=== PATIENT | male | born 1985 | race Caucasian/White ===

== ENCOUNTER 2017-05-25 08:00 | Outpatient (CLI) | payer MEDICAID ==
[2017-05-25 19:39] LABS: H. PYLORIS ANTIGEN STL NEGATIVE (Negative)
== END 2017-05-25 08:01 | disposition home or self-care (01) ==
LOC: LAB.WCP 08:00
PROVIDERS: ATTEND Family Medicine
DX: K21.9 Gastro-esophageal reflux disease without esophagitis (principal)
CPT/HCPCS: 87338

== ENCOUNTER 2017-06-26 13:02 | Outpatient (CLI) | payer MEDICAID | END 2017-06-26 13:03 | disposition home or self-care (01) | LOC: SC 13:02 | PROVIDERS: ATTEND Internal Medicine Pulmonary Disease | DX: G47.00 Insomnia, unspecified (principal); G47.9 Sleep disorder, unspecified | CPT/HCPCS: 99203; 99212 ==

== ENCOUNTER 2017-11-12 21:33 | Emergency (ER) | payer MEDICAID ==
--- NOTE | 2017-11-12 21:45 | ED Physician Documentation ---
PD HPI UPPER EXT INJURY - Stated complaint Stated Complaint: RT HAND LACERATION - Chief complaint Chief Complaint: Laceration - History obtained from History obtained from: Patient - History of Present Illness Location: Right, Finger (flexion crease middle finger right hand from sheet metal on bottom of fridge he was lifting.) Type of injury: Laceration Timing - onset: Today Timing - details: Abrupt onset Worsened by: Moving, Palpating Associated symptoms: No: Weakness, Numbness, Tingling Similar symptoms before: Has not had sx before Recently seen: Not recently seen Review of Systems Skin: reports: Laceration (s) Neurologic: denies: Focal weakness, Numbness PD PAST MEDICAL HISTORY - Past Medical History Cardiovascular: None Respiratory: None Endocrine/Autoimmune: None GI: GERD : Other HEENT: Chronic hearing loss Psych: Depression, Anxiety, Panic attacks, Post traumatic stress disorder Musculoskeletal: None Derm: None - Past Surgical History Ortho: Arthroscopic surgery HEENT: Rhinoplasty - Present Medications Home Medications: Ambulatory Orders Medication Instructions Recorded Confirmed Acetaminophen [Tylenol Extra 1,000 mg PO BID 07/07/15 07/07/15 Strength] Acyclovir [Zovirax] 200 mg PO BID 07/07/15 07/07/15 Fexofenadine HCl [Tyra Allergy] 180 mg PO DAILY 07/07/15 07/07/15 Propranolol [Inderal] 20 mg PO BID 07/07/15 07/07/15 raNITIdine [Zantac] 150 mg PO DAILY 07/07/15 07/07/15 - Allergies Allergies/Adverse Reactions: Allergies Allergy/AdvReac Type Severity Reaction Status Date / Time No Known Drug Allergies Allergy Verified 11/12/17 21:45 PD ED PE NORMAL - Vitals Vital signs reviewed: Yes - General General: Alert and oriented X 3, No acute distress, Well developed/nourished - Derm Derm: Normal color, Warm and dry - Extremities Extremities: Other (right middle finger PIP flexion crease with 1 cm laceration to fatty tissue. No FB nor tendon involvement. Wound opens with finger straightening.) Results - Vitals Vitals: Oxygen O2 Source Room air Procedures - Laceration (location) right middle finger Length in cm: 1 Wound type: Linear, Into subcut fat, Clean. No: Contaminated Neurovascular status: Sensory intact, Motor intact, Vascular intact Tendon involvement: Tendon intact Anesthesia: Lidocaine 2% Skin layer closure: Nylon, Interrupted, Size #-0 - enter number (4), Sutures - enter # (4) Other: Patient tolerated well, No complications, Neurovascular intact, Dressing applied, Tetanus UTD Complexity: Simple PD MEDICAL DECISION MAKING - ED course Complexity details: considered differential (wound opens with finger straightening and is at flexion crease, so likely not hold with just tape nor glue. ), d/w patient - Sepsis Event Vital Signs: Oxygen O2 Source Room air Departure - Departure Disposition: 01 Home, Self Care Clinical Impression: Laceration of middle finger Qualifiers: Encounter type: initial encounter Damage to nail status: without damage Foreign body presence: without foreign body Laterality: right Qualified Code(s) : S61.212A - Laceration without foreign body of right middle finger without damage to nail, initial encounter Condition: Stable Record reviewed to determine appropriate education?: Yes Instructions: ED Laceration Hand Follow-Up: Barb Alfaro MD [Primary Care Provider] - Comments: It is okay to wash and shower. Clean off the wound twice a day with soap and water, or peroxide and water. Apply some antibiotic ointment to it to keep it moist. Also to watch for signs of infection such as purulence, redness or increasing pain. Return to your primary care or the ER at the specified time for suture removal. Suture removal about 10 days. Discharge Date/Time: 11/12/17 22:43
[2017-11-12] MEDS ORDERED: LIDOCAINE MPF 1%-EPI 1:200000 30 ML VIAL SUBQ STA (22:00)
[2017-11-12 22:44] VITALS: BP 124/74
== END 2017-11-12 22:43 | disposition home or self-care (01) ==
LOC: ED 21:33
DX: S61.212A Laceration without foreign body of right middle finger without damage to nail, initial encounter (principal)
CPT/HCPCS: 12001; 99282; 99283

== ENCOUNTER 2017-11-17 09:17 | Emergency (ER) | payer MEDICAID ==
[2017-11-17] MEDS ORDERED: SODIUM CHLORIDE 0.9% 1,000 ML IV ONE ×2 (11:50→13:11)
[2017-11-17] MEDS ORDERED: IBUPROFEN 800 MG TABLET PO STA (11:50)
--- NOTE | 2017-11-17 11:53 | ED Physician Documentation ---
History of Present Illness - Stated complaint Stated Complaint: NAUSEA,DIZZINESS,FEVER - Chief complaint Chief Complaint: General - History obtained from History obtained from: Patient - Additonal information Additional information: The patient is an otherwise healthy 32-year-old male who presents with fever and chills that started 2 days ago. He reports generalized myalgias and vomiting 2 days ago and yesterday morning. He denies abdominal pain, diarrhea, or dysuria. He does report cough without sputum production, and denies shortness of breath. He reports headache with coughing. He denies history of similar symptoms in the past. He was seen in the emergency department 4 days ago for finger laceration. Tetanus booster was administered 2 days ago. Review of Systems Constitutional: reports: Fever, Chills, Myalgias Eyes: denies: Irritation Ears: denies: Ear pain Nose: denies: Congestion Throat: denies: Sore throat Cardiac: denies: Chest pain / pressure Respiratory: reports: Cough. denies: Dyspnea GI: reports: Vomiting. denies: Abdominal Pain, Diarrhea : denies: Dysuria Skin: denies: Rash Musculoskeletal: denies: Back pain Neurologic: reports: Headache (mild generalized). denies: Focal weakness, Numbness PD PAST MEDICAL HISTORY - Past Medical History Cardiovascular: None Respiratory: None Endocrine/Autoimmune: None GI: GERD : Other HEENT: Chronic hearing loss Psych: Depression, Anxiety, Panic attacks, Post traumatic stress disorder Musculoskeletal: None Derm: None - Past Surgical History Past Surgical History: Yes Ortho: Arthroscopic surgery HEENT: Rhinoplasty - Present Medications Home Medications: Ambulatory Orders Medication Instructions Recorded Confirmed Acetaminophen [Tylenol Extra 1,000 mg PO BID 07/07/15 07/07/15 Strength] Acyclovir [Zovirax] 200 mg PO BID 07/07/15 07/07/15 Fexofenadine HCl [Tyra Allergy] 180 mg PO DAILY 07/07/15 07/07/15 Propranolol [Inderal] 20 mg PO BID 07/07/15 07/07/15 raNITIdine [Zantac] 150 mg PO DAILY 07/07/15 07/07/15 - Allergies Allergies/Adverse Reactions: Allergies Allergy/AdvReac Type Severity Reaction Status Date / Time No Known Drug Allergies Allergy Verified 11/12/17 21:45 - Social History Does the pt smoke?: No Smoking Status: Never smoker Does the pt drink ETOH?: No Does the pt have substance abuse?: No - Immunizations Immunizations are current?: Yes - POLST Patient has POLST: No PD ED PE NORMAL - Vitals Vital signs reviewed: Yes (normal) - General General: Alert and oriented X 3, Well developed/nourished - HEENT HEENT: Atraumatic, EOMI, Ears normal, Pharynx benign, Other (dry buccal mucosa) - Neck Neck: Supple, no meningeal sign, No adenopathy - Cardiac Cardiac: RRR, No murmur - Respiratory Respiratory: No respiratory distress, Clear bilaterally - Abdomen Abdomen: Soft, Non tender - Back Back: No CVA TTP - Derm Derm: No rash - Extremities Extremities: No edema, No calf tenderness / cord - Neuro Neuro: Alert and oriented X 3, No motor deficit, Normal speech Results - Vitals Vitals: Vital Signs - 24 hr 11/17/17 11/17/17 09:24 15:30 Temperature 36.8 C Heart Rate 107 H 81 Respiratory 18 18 Rate Blood Pressure 103/66 110/61 O2 Saturation 97 100 Oxygen O2 Source Room air - Labs Labs: Laboratory Tests 11/17/17 11/17/17 11/17/17 12:35 12:35 12:55 WBC 4.8 RBC 4.66 L Hgb 14.7 Hct 42.9 MCV 92.1 MCH 31.6 H MCHC 34.3 RDW 12.4 Plt Count 98 L MPV 9.0 Neut # (Auto) 4.0 Lymph # (Auto) 0.5 L [place] # (Auto) 0.3 Eos # (Auto) 0.0 Baso # (Auto) 0.0 Absolute Nucleated RBC 0.00 Nucleated RBC % 0.0 Sodium 132 L Potassium 3.4 L Chloride 96 L Carbon Dioxide 28 Anion Gap 8.0 BUN 13 Creatinine 1.1 Estimated GFR (MDRD) 77 L Glucose 109 H Calcium 8.7 Total Bilirubin 1.3 H AST 82 H ALT 104 H Alkaline Phosphatase 82 Total Protein 8.3 H Albumin 3.8 Globulin 4.5 H Albumin/Globulin Ratio 0.8 L Lipase 25 Urine Color DARK YELLOW Urine Clarity CLEAR Urine pH 6.0 Ur Specific Fence 1.025 Urine Protein 100 H Urine Glucose (UA) NEGATIVE Urine Ketones 15 H Urine Occult Blood TRACE-INTA Urine Nitrite NEGATIVE Urine Bilirubin SMALL H Urine Urobilinogen >=8.0 H Ur Leukocyte Esterase NEGATIVE Urine RBC 0-5 Urine WBC 0-3 Ur Squamous Epith Cells RARE Squamous Urine Bacteria Rare Ur Microscopic Review INDICATED Urine Culture Comments NOT INDICATED PD MEDICAL DECISION MAKING - ED course Complexity details: reviewed results, re-evaluated patient, considered differential, d/w patient ED course: The patient's presentation is most consistent with viral syndrome with associated symptoms fever, chills, headache, myalgias, cough, and vomiting. Because of vomiting and poor oral intake he has become dehydrated, causing exacerbation of his symptoms. His examination does not suggest meningitis, pneumonia, and I doubt sepsis. White blood cell count is normal at 4.8. Treatment in the emergency department included administration of normal saline 2 L IV, ibuprofen 800 mg orally, famotidine 20 mg IV, Ofirmev 1 g IV, and GI cocktail. His symptoms improved with the above treatment. I discussed with him the expected course of illness, symptomatic treatment and outpatient follow-up, as well as potentially worrisome signs or symptoms that should prompt reevaluation in the emergency department. - Sepsis Event Vital Signs: Vital Signs - 24 hr 11/17/17 11/17/17 09:24 15:30 Temperature 36.8 C Heart Rate 107 H 81 Respiratory 18 18 Rate Blood Pressure 103/66 110/61 O2 Saturation 97 100 Oxygen O2 Source Room air Departure - Departure Disposition: 01 Home, Self Care Clinical Impression: Viral syndrome, Dehydration Condition: Stable Instructions: ED Viral Syndrome Follow-Up: Barb Alfaro MD [Primary Care Provider] - Comments: Drink plenty of fluids. You can use Zofran if needed for nausea, as previously prescribed. Follow up with your primary physician within 1-2 weeks. Call to schedule appointment. Return to the emergency department if you develop increasing abdominal pain, persistent vomiting, or otherwise worsening symptoms. Discharge Date/Time: 11/17/17 15:34
[2017-11-17 13:05] LABS: BASOPHILS % (AUTO) 0.5 %; EOSINOPHILS % (AUTO) 0.1 %; HGB - HEMOGLOBIN 14.7 g/dL (14.0-18.0); LYMPHOCYTES # (AUTO) 0.5 10^3/uL (1.5-3.5); LYMPHOCYTES % (AUTO) 9.9 %; MEAN CORPUSCULAR HEMOGLOBIN 31.6 pg (27.0-31.0); MEAN CORPUSCULAR HGB CONC 34.3 g/dL (32.0-36.0); MEAN CORPUSCULAR VOLUME 92.1 fL (80.0-94.0); MONOCYTES # (AUTO) 0.3 10^3/uL (0.0-1.0); MONOCYTES % (AUTO) 6.7 %; NEUTROPHILS % (AUTO) 82.8 %; PLT - PLATELET COUNT 98 10^3/uL (130-450); RED BLOOD COUNT 4.66 10^6/uL (4.70-6.10); RED CELL DISTRIBUTION WIDTH 12.4 % (12.0-15.0); WHITE BLOOD COUNT 4.8 x10^3/uL (4.8-10.8)
[2017-11-17 13:05] LABS: GLUCOSE, URINE (UA) NEGATIVE (NEGATIVE); KETONES,URINE (UA) 15 mg/dL (NEGATIVE); LEUKOCYTE ESTERASE, URINE NEGATIVE (NEGATIVE); NITRITE,URINE NEGATIVE (NEGATIVE); OCCULT BLOOD,URINE TRACE-INTA (NEGATIVE); PROTEIN,URINE 100 mg/dL (NEGATIVE); UROBILINOGEN,URINE >=8.0 E.U./dL (NORMAL)
[2017-11-17 13:09] LABS: CLARITY,URINE CLEAR (CLEAR)
[2017-11-17 13:10] LABS: BILIRUBIN,URINE SMALL (NEGATIVE); ICTOTEST,URINE POSITIVE
[2017-11-17 13:19] LABS: ALBUMIN 3.8 g/dL (3.2-5.5); ALBUMIN/GLOBULIN RATIO 0.8 (1.0-2.2); BILIRUBIN,TOTAL 1.3 mg/dL (0.2-1.0); CALCIUM 8.7 mg/dL (8.5-10.3); CREATININE 1.1 mg/dL (0.6-1.2); TOTAL PROTEIN 8.3 g/dL (6.7-8.2)
[2017-11-17 13:27] LABS: RBC,URINE 0-5 /HPF (0-5)
[2017-11-17 13:28] LABS: BACTERIA,URINE Rare /HPF (None Seen); SQUAMOUS EPITHELIAL CELL,UR RARE Squamous (<= Few)
[2017-11-17] MEDS ORDERED: LIDOCAINE VISCOUS 2% 15 ML UDC MM STA (14:04)
[2017-11-17] MEDS ORDERED: MAG HYDROX/AL HYDROX/SIMETH 30 ML UDC PO STA (14:04)
[2017-11-17] MEDS ORDERED: FAMOTIDINE 20 MG/50 ML 50 ML IV ONE (14:04)
[2017-11-17] MEDS ORDERED: ACETAMINOPHEN 1,000 MG/100 ML 100 ML IV STA (14:04)
[2017-11-17 15:30] VITALS: BP 110/61
== END 2017-11-17 15:34 | disposition home or self-care (01) ==
LOC: ED 09:17
DX: B34.9 Viral infection, unspecified (principal); E86.0 Dehydration
CPT/HCPCS: 36415; 80053; 81001; 83690; 85025; 96361; 96365; 96368; 99283; 99284; A9270; J0131; 81003; 87086

== ENCOUNTER 2018-11-27 08:00 | Outpatient (CLI) | payer MEDICAID ==
[2018-11-27 12:36] LABS: BASOPHILS # (AUTO) 0.1 10^3/uL (0.0-0.1); BASOPHILS % (AUTO) 1.1 %; EOSINOPHILS # (AUTO) 0.2 10^3/uL (0.0-0.7); EOSINOPHILS % (AUTO) 2.3 %; HGB - HEMOGLOBIN 14.6 g/dL (14.0-18.0); LYMPHOCYTES # (AUTO) 2.4 10^3/uL (1.5-3.5); LYMPHOCYTES % (AUTO) 36.8 %; MEAN CORPUSCULAR HEMOGLOBIN 30.4 pg (27.0-31.0); MEAN PLATELET VOLUME 10.2 fL (7.4-11.4); MONOCYTES # (AUTO) 0.7 10^3/uL (0.0-1.0); MONOCYTES % (AUTO) 10.2 %; NEUTROPHILS # (AUTO) 3.2 10^3/uL (1.5-6.6); NEUTROPHILS % (AUTO) 49.3 %; PLT - PLATELET COUNT 288 10^3/uL (130-450); RED CELL DISTRIBUTION WIDTH 12.3 % (12.0-15.0); WHITE BLOOD COUNT 6.5 x10^3/uL (4.8-10.8)
[2018-11-27 13:17] LABS: HB2 TOTAL 15.7 g/dL; HEMOGLOBIN A1C 0.6 g/dL; HEMOGLOBIN A1C % 5.6 % (4.6-6.2)
[2018-11-27 13:38] LABS: ALBUMIN 4.1 g/dL (3.2-5.5); ALBUMIN/GLOBULIN RATIO 1.1 (1.0-2.2); ALKALINE PHOSPHATASE 51 IU/L (42-121); ALT ALANINE AMINOTRANSFERASE 68 IU/L (10-60); AST ASPARTATE AMINOTRANSFERASE 29 IU/L (10-42); BILIRUBIN,TOTAL 0.6 mg/dL (0.2-1.0); BUN - BLOOD UREA NITROGEN 10 mg/dL (6-20); CALCIUM 9.7 mg/dL (8.5-10.3); CARBON DIOXIDE - CO2 29 mmol/L (21-32); CHLORIDE 103 mmol/L (101-111); CHOL/HDL RATIO 5.5 (<5.0); CHOLESTEROL 199 mg/dL; CREATININE 1.1 mg/dL (0.6-1.2); GFR - MDRD 77 (>89); GLUCOSE 108 mg/dL (70-100); HDL CHOLESTEROL 36 mg/dL; LDL CHOLESTEROL,CALCULATED 120 mg/dL; LDL/HDL RATIO 3.3 (<3.6); SODIUM 140 mmol/L (135-145); VLDL CHOLESTEROL 43 mg/dL
== END 2018-11-27 23:59 | disposition home or self-care (01) ==
LOC: LAB.WCP 08:00
PROVIDERS: ATTEND Family Medicine
DX: Z00.00 Encounter for general adult medical examination without abnormal findings (principal); F41.9 Anxiety disorder, unspecified
CPT/HCPCS: 36415; 80053; 80061; 83036; 83721; 84443; 85025

== ENCOUNTER 2018-12-06 09:14 | Outpatient (CLI) | payer MEDICAID ==
--- NOTE | 2018-12-06 19:03 | Ultrasound Report ---
Reason: DIARRHEA Procedure Date: 12/06/2018 Accession Number: [id number] / [id number] Procedure: US - Abdomen Complete CPT Code: FULL RESULT: EXAM: ABDOMEN ULTRASOUND EXAM DATE: 12/06/2018 11:09 AM. CLINICAL HISTORY: DIARRHEA. COMPARISON: None. TECHNIQUE: Real-time scanning was performed with static images obtained. FINDINGS: Liver: Diffusely echogenic. Right lobe is 15 cm. Main portal vein flow: Hepatopetal. Gallbladder: No stones, wall thickening, or sonographic Linda's sign. Biliary System: Common bile duct measures 6 mm. No intrahepatic ductal dilatation. Pancreas: Pancreatic head is unremarkable. Body and tail obscured by overlying bowel gas. Kidneys: Right: 10.1 cm longitudinally. No contour-deforming mass, shadowing stones, or hydronephrosis. Left: 10.9 cm longitudinally. No contour-deforming mass, shadowing stones, or hydronephrosis. Spleen: 9.3 cm Imaged portions of the aorta and IVC are unremarkable. IMPRESSION: No acute sonographic abnormalities. Diffusely echogenic liver, most commonly seen with steatosis. RADIA
== END 2018-12-06 09:15 | disposition home or self-care (01) ==
LOC: DI 09:14
PROVIDERS: ATTEND Family Medicine
DX: R19.7 Diarrhea, unspecified (principal)
CPT/HCPCS: 76700

== ENCOUNTER 2019-05-14 08:20 | Emergency (ER) | payer MEDICAID ==
[2019-05-14 08:30] VITALS: BP 115/69
--- NOTE | 2019-05-14 08:37 | ED Physician Documentation ---
PD ANALI HEENT - Stated complaint Stated Complaint: FEVER,SORE THRAOT - Chief complaint Chief Complaint: Fever - History obtained from History obtained from: Patient - History of Present Illness Timing - onset: How many days ago (4) Timing - duration: Days (4) Location: Throat Improves: Nothing Associated symptoms: Fever (He says his thermometer is broken because it only read 97 degrees.), Congestion, Unable to swallow, Cough Recently seen: Not recently seen - Additional information Additional information: There is a 33-year-old presents with his significant other complaints that he is had a sore throat and subjective fever for the past 4 days. No known strep exposure. When asked to rate the pain he said it is "pretty bad" and then told me the only thing he wanted to be able to do was to swallow. He has had a stuffy nose and some coughing. He took DayQuil and NyQuil for his symptoms last dose at 530 it has not seemed to help at all. 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 Denies any medical conditions. No known exposures to strep or influenza. Review of Systems Constitutional: denies: Fever Ears: denies: Ear pain Nose: reports: Rhinorrhea / runny nose, Congestion Throat: reports: Sore throat Respiratory: reports: Cough Skin: denies: Rash PD PAST MEDICAL HISTORY - Past Medical History Cardiovascular: None Respiratory: None Neuro: Head injury Endocrine/Autoimmune: None GI: GERD : Other HEENT: Chronic hearing loss Psych: Depression, Anxiety, Panic attacks, Post traumatic stress disorder Musculoskeletal: None Derm: None - Past Surgical History Past Surgical History: Yes Ortho: Arthroscopic surgery HEENT: Rhinoplasty - Present Medications Home Medications: Ambulatory Orders Medication Instructions Recorded Confirmed Acetaminophen [Tylenol Extra 1,000 mg PO BID 07/07/15 07/07/15 Strength] Acyclovir [Zovirax] 200 mg PO BID 07/07/15 07/07/15 Fexofenadine HCl [Tyra Allergy] 180 mg PO DAILY 07/07/15 07/07/15 Propranolol [Inderal] 20 mg PO BID 07/07/15 07/07/15 raNITIdine [Zantac] 150 mg PO DAILY 07/07/15 07/07/15 - Allergies Allergies/Adverse Reactions: Allergies Allergy/AdvReac Type Severity Reaction Status Date / Time acetaminophen [From Percocet] AdvReac Itching Verified 05/14/19 08:27 oxycodone [From Percocet] AdvReac Itching Verified 05/14/19 08:27 - Social History Does the pt smoke?: No Smoking Status: Former smoker Does the pt drink ETOH?: No Does the pt have substance abuse?: No - Immunizations Immunizations are current?: Yes - POLST Patient has POLST: No PD ED PE NORMAL - Vitals Vital signs reviewed: Yes - General General: Alert and oriented X 3, No acute distress, Well developed/nourished - HEENT HEENT: Atraumatic, PERRL, EOMI, Moist mucous membranes (No tonsillar enlargement or exudate.), Pharynx benign - Neck Neck: Supple, no meningeal sign, No adenopathy - Cardiac Cardiac: RRR, No murmur, Strong equal pulses - Respiratory Respiratory: No respiratory distress, Clear bilaterally - Neuro Neuro: Alert and oriented X 3, No motor deficit, No sensory deficit, Normal speech Results - Vitals Vitals: Vital Signs - 24 hr 05/14/19 08:27 Temperature 36.7 C Heart Rate 68 Respiratory 18 Rate Blood Pressure 115/69 O2 Saturation 97 Oxygen O2 Source Room air - Labs Labs: Laboratory Tests 05/14/19 05/14/19 08:30 09:10 Influenza A (Rapid) Negative Influenza B (Rapid) Negative Group A Strep Rapid Negative PD MEDICAL DECISION MAKING - ED course Complexity details: reviewed results, re-evaluated patient, d/w patient, d/w family ED course: Patient was given ibuprofen 600 mg orally and said that he was feeling a little bit better in his throat was able to swallow. Strep and influenza swabs were negative. Patient declined a note for work although I encouraged him to stay home today. Drink plenty of water use ibuprofen and salt water gargles for his throat. Follow-up with his primary care provider as needed. Departure - Departure Disposition: 01 Home, Self Care Clinical Impression: URI (upper respiratory infection) Qualifiers: URI type: unspecified viral URI Qualified Code(s): J06.9 - Acute upper respiratory infection, unspecified Condition: Good Instructions: ED Upper Resp Infec No Abx Tx Follow-Up: [facility] [Provider Group] Comments: Rest and drink plenty of fluids. Ibuprofen 3 to 4 tablets every 8 hours with food and/or Tylenol for your sore throat. Salt water gargles can also help soothe the throat. These infections can last for 10 to 12 days. If you are not improving in that timeframe or things worsen with high fever, vomiting and cannot keep anything down or you cannot swallow liquids you should follow-up sooner.
[2019-05-14 08:53] LABS: RAPID STREP SCREEN Negative (Negative)
[2019-05-14] MEDS ORDERED: IBUPROFEN 600 MG TABLET PO STA (09:01)
== END 2019-05-14 10:38 | disposition home or self-care (01) ==
LOC: ED 08:20
DX: J06.9 Acute upper respiratory infection, unspecified (principal); Z87.891 Personal history of nicotine dependence
CPT/HCPCS: 87070; 87077; 87275; 87276; 87430; 99283; 99284; A9270

== ENCOUNTER 2019-11-04 12:37 | Outpatient (CLI) | payer MEDICAID ==
--- NOTE | 2019-11-04 14:13 | XRAY Report ---
PROCEDURE: Chest 2 View X-Ray INDICATIONS: CHEST PAIN TECHNIQUE: 2 view(s) of the chest. COMPARISON: None. FINDINGS: Surgical changes and devices: None. Lungs and pleura: No pleural effusions or pneumothorax. Lungs are clear. Mediastinum: Mediastinal contours are normal. Heart size is normal. Bones and chest wall: No suspicious bony abnormalities. Soft tissues appear unremarkable. IMPRESSION: No acute pulmonary process. Reviewed by: Ivana Campo MD on 11/04/2019 2:12 PM PDT Approved by: Ivana Campo MD on 11/04/2019 2:12 PM PDT Station ID: [id number]
== END 2019-11-04 12:38 | disposition home or self-care (01) ==
LOC: DI.N 12:37
PROVIDERS: ATTEND Physician Assistant
DX: R07.9 Chest pain, unspecified (principal)
CPT/HCPCS: 71046

== ENCOUNTER 2020-11-09 08:00 | Outpatient (CLI) | payer MEDICAID ==
[2020-11-09 18:40] LABS: BASOPHILS # (AUTO) 0.1 10^3/uL (0.0-0.1); EOSINOPHILS # (AUTO) 0.2 10^3/uL (0.0-0.7); HCT - HEMATOCRIT 46.4 % (42.0-52.0); HGB - HEMOGLOBIN 15.4 g/dL (14.0-18.0); LYMPHOCYTES # (AUTO) 2.6 10^3/uL (1.5-3.5); LYMPHOCYTES % (AUTO) 35.2 %; MEAN CORPUSCULAR HEMOGLOBIN 30.9 pg (27.0-31.0); MEAN CORPUSCULAR HGB CONC 33.2 g/dL (32.0-36.0); MEAN CORPUSCULAR VOLUME 93.2 fL (80.0-94.0); MEAN PLATELET VOLUME 10.5 fL (7.4-11.4); MONOCYTES # (AUTO) 0.8 10^3/uL (0.0-1.0); MONOCYTES % (AUTO) 10.2 %; NEUTROPHILS # (AUTO) 3.8 10^3/uL (1.5-6.6); NEUTROPHILS % (AUTO) 51.3 %; PLT - PLATELET COUNT 283 10^3/uL (130-450); RED BLOOD COUNT 4.98 10^6/uL (4.70-6.10); WHITE BLOOD COUNT 7.3 x10^3/uL (4.8-10.8)
[2020-11-09 19:02] LABS: ALBUMIN 4.5 g/dL (3.2-5.5); ALBUMIN/GLOBULIN RATIO 1.1 (1.0-2.2); ALKALINE PHOSPHATASE 64 IU/L (42-121); ALT ALANINE AMINOTRANSFERASE 44 IU/L (10-60); AST ASPARTATE AMINOTRANSFERASE 22 IU/L (10-42); BILIRUBIN,TOTAL 0.8 mg/dL (0.2-1.0); BUN - BLOOD UREA NITROGEN 17 mg/dL (6-20); CALCIUM 9.3 mg/dL (8.5-10.3); CARBON DIOXIDE - CO2 28 mmol/L (21-32); CHLORIDE 96 mmol/L (101-111); CHOL/HDL RATIO 6.6 (<5.0); CHOLESTEROL 236 mg/dL; CREATININE 1.1 mg/dL (0.6-1.2); GFR - MDRD 76 (>89); GLUCOSE 95 mg/dL (70-100); HDL CHOLESTEROL 36 mg/dL; LDL CHOLESTEROL,CALCULATED 155 mg/dL; LDL/HDL RATIO 4.3 (<3.6); SODIUM 135 mmol/L (135-145); TOTAL PROTEIN 8.7 g/dL (6.7-8.2); TRIGLYCERIDES 227 mg/dL; VLDL CHOLESTEROL 45 mg/dL
[2020-11-09 19:07] LABS: CRP - C-REACTIVE PROTEIN < 1.0 mg/dL (0-1.0)
[2020-11-09 19:13] LABS: THYROID STIMULATING HORMONE 1.18 uIU/mL (0.34-5.60)
== END 2020-11-09 23:59 | disposition home or self-care (01) ==
LOC: LAB.WCP 08:00
PROVIDERS: ATTEND Internal Medicine
DX: R29.91 Unspecified symptoms and signs involving the musculoskeletal system (principal); Z13.220 Encounter for screening for lipoid disorders; R25.1 Tremor, unspecified; R07.89 Other chest pain
CPT/HCPCS: 36415; 80053; 80061; 83721; 84443; 85025; 85651; 86140